=== PATIENT | male | born 1975 | race Caucasian/White ===

== ENCOUNTER 2018-06-07 06:29 | Emergency (ER) | payer OTHER ==
[~2018-06-07] VITALS: Ht 185.4 cm; Wt 129.7 kg
[2018-06-07 06:44] VITALS: Ht 185.4 cm; Wt 129.7 kg
[2018-06-07 07:47] VITALS: BP 146/107
== END 2018-06-07 07:47 | disposition home or self-care (01) ==
LOC: ED 06:29
DX: S09.90XA Unspecified injury of head, initial encounter (principal); M54.5 Low back pain; W22.8XXA Striking against or struck by other objects, initial encounter; Y93.89 Activity, other specified; Y92.89 Other specified places as the place of occurrence of the external cause; Y99.8 Other external cause status
CPT/HCPCS: J1885